=== PATIENT | female | born 1945 | race Caucasian/White ===

== ENCOUNTER 2016-12-18 10:34 | Day surgery (SDC) | payer OTHER ==
[~2016-12-18 10:34] MED LIST: ADVAIR DISKU1 INH; AMITRIPTYLINE H50 MG PO; AMLODIPINE BESYL5 MG PO; BACLOFEN10 MG PO; CHLORTHALIDONE25 MG PO; DOXAZOSIN MESYLA4 MG PO; ETODOLAC500 MG PO; GABAPENTIN600 MG PO; KLOR-CON 1010 MEQ PO; LASIX40 MG PO; LEVAQUIN500 MG PO; LISINOPRIL10 MG PO; LOPRESSOR50 MG PO; MAGNESIUM GLUC250 MG PO; METHOCARBAMOL500 MG PO; MONTELUKAST SOD10 MG PO; OMEPRAZOLE20 M1 PO; PERCOCET1 TA1 PO; PRAVACHOL40 MG PO; PROAIR HFA IN
--- NOTE | 2016-12-18 13:16 | Provider's Discharge Care Plan ---
Problem, Goal, Plan Problem List 1. At risk for colon cancer
--- NOTE | 2016-12-18 13:16 | Provider's Discharge Care Plan ---
Problem, Goal, Plan Problem List 1. At risk for colon cancer
--- NOTE | 2016-12-18 14:32 | OPERATIVE REPORT ---
DATE OF SURGERY: 12/18/2016 SURGEON: Simba Gomez MD PREOPERATIVE DIAGNOSES: 1. Colon cancer risk 2. Diarrhea POSTOPERATIVE DIAGNOSIS: 1. Diverticulosis PROCEDURE PERFORMED: 1. Colonoscopy INDICATIONS: The patient is a 71-year-old woman who has had episodic diarrhea. She also has a family history of colon cancer in her father. SURGICAL TECHNIQUE: The patient was taken to the endoscopy suite, where total IV general was administered and the patient was placed in the left lateral decubitus position. A well-lubricated colonoscope was advanced the length of the colon under direct vision. The cecum was reached and the ileocecal valve visualized. On withdrawal, the entire colon was inspected, including a retroflexed view of the rectum. There were several diverticula in the sigmoid colon, but there were no polyps or tumors. The patient left in good condition. No intraoperative complications were encountered.
[2016-12-18 14:38] VITALS: BP 167/94
== END 2016-12-18 15:00 | disposition home or self-care (01) ==
LOC: OR SRH 10:34 → SCU SRH 10:36 → OR SRH 11:15
PROVIDERS: Surgery
PROC: 0DJD8ZZ Inspection of Lower Intestinal Tract, Via Natural or Artificial Opening Endoscopic (ICD-10-PCS; principal; 2016-12-18 11:15)
DX: Z12.11 Encounter for screening for malignant neoplasm of colon (principal); K57.30 Diverticulosis of large intestine without perforation or abscess without bleeding; I12.9 Hypertensive chronic kidney disease with stage 1 through stage 4 chronic kidney disease, or unspecified chronic kidney disease; N18.2 Chronic kidney disease, stage 2 (mild); J45.909 Unspecified asthma, uncomplicated
CPT/HCPCS: 29229; 29240; 50004; 60001; 83526; 90047; 90074; 95059